=== PATIENT | male | born 1935 | race Caucasian/White ===

== ENCOUNTER 2018-01-11 19:45 | Inpatient (IN) | payer MEDICARE ==
[~2018-01-11] VITALS: Ht 167.6 cm; Wt 88.2 kg
[~2018-01-11 19:45] MED LIST: AMLO10 PO; CARV25 PO; CLOP75 PO; CYCL10 PO; FURO20 PO; GABA300 PO; HYDPAM25 PO; Omeprazole20 M1 PO; Percocet 5-3251 EACH PO
[2018-01-11 20:48] LABS: BASOPHILS ABSOLUTE AUTO 0.07 K/mm3 (0.00-0.23); BASOPHILS PERCENT AUTO 1 % (0-2); EOSINOPHILS ABSOLUTE AUTO 0.18 K/mm3 (0.00-0.68); EOSINOPHILS PERCENT AUTO 1 % (0-6); Hematocrit 36.3 % (37.0-53.0); Hemoglobin 11.8 g/dL (13.5-17.5); IMMATURE GRAN ABSOLUTE AUTO 0.06 K/mm3 (0.00-0.10); IMMATURE GRAN PERCENT AUTO 0 % (0-1); LYMPHOCYTES ABSOLUTE AUTO 1.05 K/mm3 (0.84-5.20); LYMPHOCYTES PERCENT AUTO 7 % (21-46); MONOCYTES ABSOLUTE AUTO 0.96 K/mm3 (0.16-1.47); MONOCYTES PERCENT AUTO 6 % (4-13); Mean Corpuscular HGB 29.9 pg (26.0-34.0); Mean Corpuscular HGB Conc 32.5 g/dL (31.5-36.5); Mean Corpuscular Volume 92 fL (80-100); Mean Platelet Volume 10.4 fL (9.1-12.4); NEUTROPHILS ABSOLUTE AUTO 13.11 K/mm3 (1.96-9.15); NEUTROPHILS PERCENT AUTO 85 % (41-73); Platelet Count 276 K/mm3 (150-400); RDW Standard Deviation 51.2 fL (35.1-46.3); Red Blood Cell Count 3.94 M/mm3 (4.30-5.90); White Blood Cell Count 15.43 K/mm3 (4.00-11.30)
[2018-01-11 20:49] LABS: Albumin/Globulin Ratio 0.9 (0.8-1.8); Bilirubin, Total 0.7 mg/dL (0.1-1.0); Bun/Creatinine Ratio 21.1 (12.0-20.0); Calcium, Blood 9.2 mg/dL (8.5-10.1); Creatinine, Blood 1.94 mg/dL (0.60-1.20); Globulin, Blood 4.3 g/dL (2.2-4.0); Potassium, Blood 4.3 mmol/L (3.5-5.5); Total Protein, Blood 8.3 g/dL (6.4-8.2)
[2018-01-11 21:04] LABS: Troponin I 8.28 ng/mL (0.000-0.040)
[2018-01-11 21:23] LABS: PCO2 Arterial 40.5 mmHg (35-45); PO2 Arterial 65.6 mmHg (80-100)
[2018-01-11 22:29] LABS: International Normalized Ratio 1.16; Prothrombin Time Results 11.8 Sec (9.7-11.5)
[2018-01-11 22:38] LABS: Influenza A Negative (NEGATIVE); Influenza B Negative (NEGATIVE)
[2018-01-12 06:31] LABS: Hematocrit 30.3 % (37.0-53.0); Hemoglobin 9.7 g/dL (13.5-17.5); Mean Corpuscular Volume 94 fL (80-100); Mean Platelet Volume 10.1 fL (9.1-12.4); Platelet Count 209 K/mm3 (150-400); RDW Standard Deviation 52.2 fL (35.1-46.3); Red Blood Cell Count 3.23 M/mm3 (4.30-5.90); White Blood Cell Count 8.56 K/mm3 (4.00-11.30)
[2018-01-12 06:56] LABS: Albumin, Blood 3.1 g/dL (3.4-5.0); Albumin/Globulin Ratio 0.8 (0.8-1.8); Bilirubin, Total 0.5 mg/dL (0.1-1.0); Calcium, Blood 8.1 mg/dL (8.5-10.1); Globulin, Blood 3.8 g/dL (2.2-4.0); Potassium, Blood 4.4 mmol/L (3.5-5.5); Total Protein, Blood 6.9 g/dL (6.4-8.2)
[2018-01-12 10:03] LABS: Source, Urine Clean Catch
[2018-01-12 10:11] LABS: Bilirubin, Urine Neg (Neg); Blood, Urine 2+ (Neg); Glucose Qualitative, Urine Neg (Neg); Ketones, Urine Neg (Neg); Leukocyte Esterase, Urine Neg (Neg); Nitrite, Urine Neg (Neg); Protein, Urine 4+ (Neg); Urobilinogen, Urine NORM (Normal)
[2018-01-12 10:51] LABS: Appearance, Urine Hazy (Clear); Color, Urine Yellow (P-Yellow)
[2018-01-12 10:52] LABS: Squamous Epithelial Cells Rare /hpf (Few)
[2018-01-12 10:53] LABS: White Blood Cells, Urine 0-2 /hpf (0-5)
[2018-01-12 10:55] LABS: Bacteria Rare /hpf; Red Blood Cells, Urine Not Seen /hpf (0-2)
[2018-01-12 10:56] LABS: Granular Casts Rare /lpf (0); Hyaline Casts Rare /lpf (0-2)
[2018-01-13 04:42] LABS: Hematocrit 28.6 % (37.0-53.0); Hemoglobin 9.1 g/dL (13.5-17.5)
[2018-01-13 04:55] LABS: Albumin, Blood 3.2 g/dL (3.4-5.0); Anion Gap 9 mmol/L (6-16); Blood Urea Nitrogen 61 mg/dL (8-24); CO2, Blood 26 mmol/L (21-32); Chloride, Blood 106 mmol/L (98-108); Creatinine, Blood 2.26 mg/dL (0.60-1.20); Glomerular Filtration Rate 29 (60-); Glucose, Blood 157 mg/dL (70-99); Magnesium, Blood 2.7 mg/dL (1.6-2.4); Phosphorus, Blood 4.1 mg/dL (2.5-4.9); Sodium, Blood 141 mmol/L (136-145)
[2018-01-13 09:21] LABS: Adenovirus Not Detected (NOT DETECT); Bordetella pertussis Not Detected (NOT DETECT); Chlamydophila pneumoniae Not Detected (NOT DETECT); Coronavirus 229E Not Detected (NOT DETECT); Coronavirus HKU1 Not Detected (NOT DETECT); Coronavirus NL63 Not Detected (NOT DETECT); Coronavirus OC43 Not Detected (NOT DETECT); Human Metapneumovirus Not Detected (NOT DETECT); Influenza A Not Detected (NOT DETECT); Influenza A/2009-H1 Not Detected (NOT DETECT); Influenza A/H1 Not Detected (NOT DETECT); Influenza A/H3 Not Detected (NOT DETECT); Influenza B Not Detected (NOT DETECT); Mycoplasma pneumoniae Not Detected (NOT DETECT); Parainfluenza Virus 1 Not Detected (NOT DETECT); Parainfluenza Virus 2 Not Detected (NOT DETECT); Parainfluenza Virus 3 Not Detected (NOT DETECT); Parainfluenza Virus 4 Not Detected (NOT DETECT); Respiratory Syncytial Virus Not Detected (NOT DETECT)
[2018-01-13 09:22] LABS: Human Rhinovirus/Enterovirus Detected (NOT DETECT)
[2018-01-14 03:41] LABS: Hematocrit 28.2 % (37.0-53.0)
[2018-01-14 04:03] LABS: Albumin, Blood 3.2 g/dL (3.4-5.0); Anion Gap 9 mmol/L (6-16); Blood Urea Nitrogen 56 mg/dL (8-24); Bun/Creatinine Ratio 28.4 (12.0-20.0); CO2, Blood 25 mmol/L (21-32); Calcium, Blood 8.2 mg/dL (8.5-10.1); Chloride, Blood 107 mmol/L (98-108); Creatinine, Blood 1.97 mg/dL (0.60-1.20); Glomerular Filtration Rate 35 (60-); Glucose, Blood 137 mg/dL (70-99); Magnesium, Blood 2.7 mg/dL (1.6-2.4); Sodium, Blood 141 mmol/L (136-145)
[2018-01-15 04:07] LABS: Hematocrit 28.2 % (37.0-53.0)
[2018-01-15 04:24] LABS: Albumin, Blood 3.1 g/dL (3.4-5.0); Anion Gap 8 mmol/L (6-16); Blood Urea Nitrogen 53 mg/dL (8-24); Bun/Creatinine Ratio 28.8 (12.0-20.0); CO2, Blood 26 mmol/L (21-32); Calcium, Blood 8.2 mg/dL (8.5-10.1); Chloride, Blood 107 mmol/L (98-108); Creatinine, Blood 1.84 mg/dL (0.60-1.20); Glomerular Filtration Rate 37 (60-); Glucose, Blood 164 mg/dL (70-99); Magnesium, Blood 2.4 mg/dL (1.6-2.4); Phosphorus, Blood 3.5 mg/dL (2.5-4.9); Potassium, Blood 4.4 mmol/L (3.5-5.5); Sodium, Blood 141 mmol/L (136-145)
[2018-01-15] MEDS ORDERED: ASPI81CH PO (13:55)
[2018-01-15] MEDS ORDERED: ATOR80 PO (13:56)
[2018-01-15] MEDS ORDERED: HYDR1TAB94 PO (13:57)
[2018-01-15] MEDS ORDERED: NITR.4SL SL (13:59)
[2018-01-15] MEDS ORDERED: METO25ER PO (14:00)
[2018-01-15] MEDS ORDERED: PRED20 PO (14:01)
[2018-01-15] MEDS ORDERED: AMOCLA500 PO (14:02)
[2018-01-15] MEDS ORDERED: COMBIVENT RESPIM4 GM INH (14:06)
[2018-01-15] MEDS ORDERED: Acidophilus La100 GM PO (14:06)
[2018-01-15] MEDS ORDERED: ROPI.25 PO (14:10)
== END 2018-01-15 14:57 | disposition home or self-care (01) | DRG 280 ==
LOC: ER 19:45 → ICUW 22:00 → ICUE 22:00 → PCU 01-13 17:15
PROVIDERS: Emergency Medicine; Internal Medicine; Internal Medicine Nephrology
PROC: B2131ZZ Fluoroscopy of Multiple Coronary Artery Bypass Grafts using Low Osmolar Contrast (ICD-10-PCS; principal; 2018-01-12)
PROC: B2111ZZ Fluoroscopy of Multiple Coronary Arteries using Low Osmolar Contrast (ICD-10-PCS; 2018-01-12)
DX: I21.4 Non-ST elevation (NSTEMI) myocardial infarction (principal); J18.1 Lobar pneumonia, unspecified organism; J96.01 Acute respiratory failure with hypoxia; N17.9 Acute kidney failure, unspecified; J44.0 Chronic obstructive pulmonary disease with (acute) lower respiratory infection; E86.9 Volume depletion, unspecified; E88.09 Other disorders of plasma-protein metabolism, not elsewhere classified; R31.29 Other microscopic hematuria; E87.70 Fluid overload, unspecified; N18.3 Chronic kidney disease, stage 3 (moderate); I35.0 Nonrheumatic aortic (valve) stenosis; D63.1 Anemia in chronic kidney disease; R80.9 Proteinuria, unspecified; K21.9 Gastro-esophageal reflux disease without esophagitis; I12.9 Hypertensive chronic kidney disease with stage 1 through stage 4 chronic kidney disease, or unspecified chronic kidney disease; Z86.718 Personal history of other venous thrombosis and embolism; Z79.01 Long term (current) use of anticoagulants; Z79.899 Other long term (current) drug therapy; E66.9 Obesity, unspecified
CPT/HCPCS: 36415; 36600; 71045; 76770; 80053; 80069; 81001; 82803; 83605; 83735; 83880; 84145; 84484; 85014; 85018; 85025; 85027; 85347; 85610; 85730; 87070; 87205; 87486; 87581; 87633; 87798; 87804; 90686; 92610; 93005; 93010; 93306; 93455; 94640; 94667; 94760; 94762; 96365; 99152; 99153; 99285-25; C1769; C1894; G0008; G8996; G8997; G8998; J0881; J1644; J1940; J1956; J2250; J2405; J2543; J2920; J2930; J3010; J7030; Q9967